=== PATIENT | male | born 1995 | race Caucasian/White ===

== ENCOUNTER 2019-06-26 14:52 | Emergency (ER) | payer OTHER ==
[2019-06-26] MEDS ORDERED: SODIUM CHLORIDE 0.9% (FLUSH) 10 ML SYG IV PRN (15:01)
[2019-06-26] MEDS ORDERED: ALBUTEROL SULFATE 2.5 MG/3 ML VIAL NEB ONE (15:01)
[2019-06-26] MEDS ORDERED: SODIUM CHLORIDE 0.9% 1000ML 1,000 ML IVS ONE (15:02)
--- NOTE | 2019-06-26 15:06 | ED.PDOC ---
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 States he was there with his family to watch his sister barrel race. Was sitting down when he suddenly became short of breath, dizzy, and lightheaded and a few seconds later reports passing out for several seconds. Awake on scene shortly later and remembers waking up and coming to the hospital. Reports now feeling anxious and short of breath and has a frontal constant throbbing 7/10 severity headache without radiation. States he has several panic attacks per year, usually stress-induced and feels like this is a panic attack. Worsening stress recently with his family. Denies chest pain, abd pain, cough, fevers, chills, n/v/d. No recent illnesses. His UC is well controlled on Antiva. Just moved back here from [place] and has not established care. Reports hx of iron deficiency anemia and saw a nurse charge rn up in [place] and used to receive monthly iron transfusions. Allergies/Adverse Reactions: Allergies NO KNOWN ALLERGY Allergy (Verified 06/26/19 15:05) Review of Systems - Review of Systems Review of Systems: 06/26/19 15:06 as per HPI Family Medical History - Family History Mother Family History: Unknown Physical Exam - Physical Exam General Appearance: Alert, Anxious, No apparent distress Eye Exam: bilateral normal Ears, Nose, Throat: hearing grossly normal, normal ENT inspection, normal pharynx Neck: non-tender, full range of motion, supple, normal inspection Respiratory: chest non-tender, no respiratory distress, no accessory muscle use, wheezing - faint end-exp BL Cardiovascular/Chest: normal peripheral pulses, no edema, no gallop, no JVD, no murmur, tachycardia Peripheral Pulses: radial,right: 2+, radial,left: 2+ Gastrointestinal/Abdominal: normal bowel sounds, soft, no organomegaly, tenderness - mild LLQ without guarding Back Exam: normal inspection, no CVA tenderness, no vertebral tenderness Extremity: normal range of motion, non-tender, normal inspection, no pedal edema, no calf tenderness Neurologic: portal developer II-XII nml as tested, no motor/sensory deficits, alert, normal mood/affect, oriented x 3 Skin Exam: normal color, warm/dry Lymphatic: no adenopathy Progress - Progress Progress: 06/26/19 15:07 Syncope -consider panic attack vs cardiac vs asthma vs acute illness vs other -cardiac work-up, labs -2 L NS bolus -trial of albuterol nebs for faint wheezing 06/26/19 16:52 -Pt feeling markedly improved, no recurrence of sx's. Eager to go home. -CXR shows no acute processes per my read. -Labs reveal microcytic anemia. Otherwise pretty unremarkable. This is c/w his reported hx of iron deficiency anemia. -Suspect panic attack/acute anxiety likely primary etiology of this acute episode but could be multifactorial in nature - discussed with pt he is at increased risk for syncope given his anemia and ulcerative colitis. Advised to rest and remain well-hydrated and slow gradual return to activity. Will need close PCP f/u and to establish care to be referred to local GI & hematology specialists here who can follow him. Advised daily oral iron supplementation as well. -dc home in good condition, return warnings discussed Ricky Shultz MD Billing #[id number] - Results/Orders Results/Orders: 06/26/19 15:01 Sodium Chloride 0.9% (Flush) [Saline Flush Syringe] 10 ml IV PRN PRN 06/26/19 15:15 EKG STAT 06/27/19 09:00 Pulse Ox Daily Laboratory Results - last 24 hr 06/26/19 06/26/19 06/26/19 15:02 15:14 15:14 WBC 8.6 RBC 5.33 Hgb 10.0 L Hct 33.0 L MCV 61.8 L MCH 18.8 L MCHC 30.3 L RDW 17.1 H Plt Count 447 H MPV 8.2 Absolute Neuts (auto) 6.50 Absolute Lymphs (auto) 1.30 Absolute Monos (auto) 0.80 Absolute Eos (auto) 0.00 Absolute Basos (auto) 0.00 Neutrophils % 75.1 Lymphocytes % 15.3 L Monocytes % 9.1 H Eosinophils % 0.2 L Basophils % 0.3 D-Dimer, Quantitative Sodium Potassium Chloride Carbon Dioxide Anion Gap BUN Creatinine BUN/Creatinine Ratio Random Glucose Serum Osmolality Calcium Total Bilirubin AST ALT Alkaline Phosphatase Creatine Kinase Troponin I B-Natriuretic Peptide Serum Total Protein Albumin Globulin Albumin/Globulin Ratio Urine Color Urine Appearance Urine pH Ur Specific Guinda Urine Protein Urine Glucose (UA) Urine Ketones Urine Blood Urine Nitrite Urine Bilirubin Urine Urobilinogen Ur Leukocyte Esterase Urine RBC Urine WBC Ur Epithelial Cells Urine Bacteria Urine Opiates Screen Negative Urine Barbiturates Negative Ur Phencyclidine Scrn Negative U Amphetamin/Meth Scrn Negative U Benzodiazepines Scrn Negative U Cocaine Metab Screen Negative U Cannabinoids Screen Negative 06/26/19 06/26/19 06/26/19 15:14 15:14 15:14 WBC RBC Hgb Hct MCV MCH MCHC RDW Plt Count MPV Absolute Neuts (auto) Absolute Lymphs (auto) Absolute Monos (auto) Absolute Eos (auto) Absolute Basos (auto) Neutrophils % Lymphocytes % Monocytes % Eosinophils % Basophils % D-Dimer, Quantitative Sodium 139 Potassium 3.5 L Chloride 104 Carbon Dioxide 23 Anion Gap 15.5 BUN 12 Creatinine 0.91 BUN/Creatinine Ratio 13.2 Random Glucose 104 Serum Osmolality 277.6 Calcium 9.6 Total Bilirubin 0.7 AST 32 ALT 19 Alkaline Phosphatase 39 L Creatine Kinase 99 Troponin I < 0.02 B-Natriuretic Peptide < 5.0 Serum Total Protein 7.6 Albumin 4.6 Globulin 3.0 Albumin/Globulin Ratio 1.5 Urine Color Urine Appearance Urine pH Ur Specific Guinda Urine Protein Urine Glucose (UA) Urine Ketones Urine Blood Urine Nitrite Urine Bilirubin Urine Urobilinogen Ur Leukocyte Esterase Urine RBC Urine WBC Ur Epithelial Cells Urine Bacteria Urine Opiates Screen Urine Barbiturates Ur Phencyclidine Scrn U Amphetamin/Meth Scrn U Benzodiazepines Scrn U Cocaine Metab Screen U Cannabinoids Screen 06/26/19 16:12 WBC RBC Hgb Hct MCV MCH MCHC RDW Plt Count MPV Absolute Neuts (auto) Absolute Lymphs (auto) Absolute Monos (auto) Absolute Eos (auto) Absolute Basos (auto) Neutrophils % Lymphocytes % Monocytes % Eosinophils % Basophils % D-Dimer, Quantitative Sodium Potassium Chloride Carbon Dioxide Anion Gap BUN Creatinine BUN/Creatinine Ratio Random Glucose Serum Osmolality Calcium Total Bilirubin AST ALT Alkaline Phosphatase Creatine Kinase Troponin I B-Natriuretic Peptide Serum Total Protein Albumin Globulin Albumin/Globulin Ratio Urine Color Yellow Urine Appearance Clear Urine pH 7.5 Ur Specific Guinda 1.020 Urine Protein Negative Urine Glucose (UA) Negative Urine Ketones Negative Urine Blood Negative Urine Nitrite Negative Urine Bilirubin Negative Urine Urobilinogen 0.2 Ur Leukocyte Esterase Negative Urine RBC 0 Urine WBC 0 Ur Epithelial Cells 0 Urine Bacteria 0 Urine Opiates Screen Urine Barbiturates Ur Phencyclidine Scrn U Amphetamin/Meth Scrn U Benzodiazepines Scrn U Cocaine Metab Screen U Cannabinoids Screen - EKG/XRAY/CT EKG: Sinus - NSR, HR 90, no ST elevations or q waves, axis & intervals normal, no prior EKG for comparison Departure - Departure Clinical Impression: Anxiety, Microcytic anemia Syncope Qualifiers: Syncope type: psychogenic syncope Qualified Code(s): F48.8 - Other specified nonpsychotic mental disorders Time of Disposition: 16:56 Disposition: Discharge to Home or Self Care Condition: Good Instructions: DI for Syncope in Adults (Fainting), Anxiety, Adult (DC) Diet: regular diet Additional Instructions: Remain well hydrated and gradually advance diet and activity level as tolerated. I advise you begin taking a daily oral iron supplementation (325 mg or 1 tablet daily). Return if symptoms return or other concerning symptoms develop such as chest pain, shortness of breath, heart racing, etc... I strongly advise you follow-up with a primary care doctor in the next 1-2 weeks for repeat evaluation and to establish care as you will need to be referred to GI and hematology for your ulcerative colitis and anemia issues as well.
[2019-06-26 15:11] VITALS: TEMP 98.7
--- NOTE | 2019-06-26 15:22 | RAD ---
EXAM: XR Chest, 1 View CLINICAL HISTORY: dyspnea, syncope TECHNIQUE: Frontal view of the chest. COMPARISON: No relevant prior studies available. FINDINGS: Lungs: Unremarkable. No consolidation. Pleural space: Unremarkable. No pneumothorax. Heart: Unremarkable. No cardiomegaly. Mediastinum: Unremarkable. Bones/joints: Unremarkable. IMPRESSION: No abnormality noted. Electronically signed by: Joan Balderas MD 06/26/2019 3:21 PM [employer]
[2019-06-26 16:14] VITALS: O2SAT 99
[2019-06-26 17:14] VITALS: BP 132/86
== END 2019-06-26 17:10 | disposition home or self-care (01) ==
LOC: ER 14:52
DX: R55 Syncope and collapse (principal); F41.9 Anxiety disorder, unspecified; D50.9 Iron deficiency anemia, unspecified; R51 Headache
CPT/HCPCS: 36415; 71045; 80053; 80307; 81001; 82550; 83880; 84484; 85025; 85379; 93005; 94640; 94760; J7030; J7611